=== PATIENT | male | born 1975 | race Two or more races ===

== ENCOUNTER 2016-11-13 16:38 | Emergency (ER) | payer OTHER ==
[~2016-11-13] VITALS: Ht 175.3 cm; Wt 84.0 kg
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
[~2016-11-13 16:38] MED LIST: BACTRIM DS TABL1 TA1 PO; KEFLEX PO; LORTAB 10-5001 EACH PO; VICODIN 5/1 TAB 5/50 PO; VICODIN PO
[2016-11-13] MEDS ORDERED: BACTROBAN15 GM TOP (18:08)
== END 2016-11-13 18:08 | disposition home or self-care (01) ==
LOC: SED 16:38
DX: S09.90XA Unspecified injury of head, initial encounter (principal); S01.81XA Laceration without foreign body of other part of head, initial encounter; S01.21XA Laceration without foreign body of nose, initial encounter; Z79.899 Other long term (current) drug therapy; W20.8XXA Other cause of strike by thrown, projected or falling object, initial encounter; Y92.009 Unspecified place in unspecified non-institutional (private) residence as the place of occurrence of the external cause
CPT/HCPCS: 12011; 70450; 99283